=== PATIENT | male | born 1995 | race Caucasian/White ===

== ENCOUNTER 2022-10-20 09:08 | Emergency (ER) | payer BC, SELFPAY ==
[2022-10-20 09:09] VITALS: BP 141/83; PULSE 107; RESP 16; TEMP 36.2; O2SAT 97; BMI 27.7
--- NOTE | 2022-10-20 09:29 | EDS_ITS ---
HPI History of Present Illness Chief Complaint: Lower Extremity Injury Informant: patient Narrative Narrative: Patient was playing with others in the grass that was wet yesterday, accidentally twisted his right ankle is been having pain laterally ever since, able to bear weight now and at the time of the injury but did feel a crack when it occurred. No other injuries. [facility] Medical History no medical history no medical history Home Medications NK 10/20/22 [History Last Taken Unknown] Allergy/AdvReac Type Severity Reaction Status Date / Time amoxicillin Allergy Mild RASH Verified 10/20/22 09:24 Social History Smoking Status: Never smoker ROS ROS ED Constitutional Constitutional ED: Denies chills or fever(s) Musculoskeletal Musculoskeletal: Reports extremity pain; Denies neck pain Integumentary Denies Abrasions, rash or wounds Neurologic Neurologic: Denies paresthesias or weakness EXAM Physical Exam Const Vital Signs: 10/20/22 09:09 Temperature 97.2 F L Temperature Source Temporal Pulse Rate 107 H Respiratory Rate 16 Blood Pressure 141/83 H Blood Pressure Mean 102 Pulse Ox 97 Oxygen Delivery Method Room Air Positive well nourished and well developed General Appearance ED: well developed and NAD Neck full ROM and supple Back/Spine normal ROM and normal to inspection Extremity normal to inspection and full ROM Extremity Narrative: Mildly tender at the lateral malleolus right ankle, but more tender just anterior to the lateral malleolus. Talar prominence distal to this in the lateral midfoot is nontender as is the base of the fifth metatarsal. Medial malleolus is nontender. Fibular head is nontender. No other midfoot or foot tenderness/injury. Ankle joint is stable is able to move it well. No significant swelling no deformities. Neuro oriented x3, no focal motor deficits and no sensory deficits noted Sensorium / Orientation: alert Psych mental status grossly normal and thought process normal Skin no wounds Rashes: no rashes MDM MDM MDM Narrative Medical decision making narrative: Three-view x-ray series of the right ankle negative for any acute fracture my interpretation. Patient is reassured, he is already in a wrap, will offer something more support if he feels like he needs it such as an Low wrap, NSAIDs and supportive care advised otherwise. Radiography Diagnostic Testing: Clinical Impression(s) from Imaging Studies Ankle X-Ray 10/20/22 09:50 IMPRESSION: Lateral soft tissue swelling. Electronically Signed: Alban Gan MD at 10:11 EDT , Discharge Plan Triage Chief Complaint: Lower Extremity Injury ED Provider: Moe Berkowitz Dx/Rx/DC Orders Clinical Impression: Right ankle sprain Instructions: ED Ankle Sprain (Adult) Prescriptions: No Action NK Primary Care Provider: Care Physician,No Primary Referrals: Doctor,Your [Non-Staff] - 10-14 Days if not better Disposition Disposition: Home, Self Care
--- NOTE | 2022-10-20 09:50 | RAD_ITS ---
STUDY: X-RAY - RIGHT ANKLE REASON FOR EXAM: Male, 27 years old. Pain following injury. TECHNIQUE: view(s) of the ankle. COMPARISON: None. FINDINGS: Normal visualized distal tibia and fibula. Normal medial and lateral malleoli. Normal tibiotalar articulation and ankle mortise. Normal visualized talus and calcaneus. The visualized subtalar, talonavicular, calcaneocuboid and tarsal articulations are normal. Lateral soft tissue swelling. RAD/Ankle min 3 Views IMPRESSION: Lateral soft tissue swelling. Electronically Signed: Alban Gan MD at 10:11 EDT ,
[2022-10-20 10:43] VITALS: BP 124/76; PULSE 64; RESP 18; TEMP 36.6; O2SAT 99
[2022-10-20] MEDS: Naproxen 250 MG Tablet 500 MG PO (11:00)
== END 2022-10-20 11:02 | disposition home or self-care (01) ==
LOC: ED 10:31
PROVIDERS: Emergency Provider Emergency Medicine; Visit Provider Emergency Medicine
DX: S93.401A Sprain of unspecified ligament of right ankle, initial encounter (principal); X50.1XXA Overexertion from prolonged static or awkward postures, initial encounter; Y93.89 Activity, other specified; Y92.89 Other specified places as the place of occurrence of the external cause
CPT/HCPCS: 73610; 99283